=== PATIENT | female | born 1945 | race Native Hawaiian/Other Pacific Islander ===

== ENCOUNTER 2019-05-07 14:48 | Outpatient (CLI) | payer OTHER ==
[~2019-05-07 14:48] MED LIST: CETIRIZINE10 MG PO; COLC0.6T6 PO; HYDR25TA60 PO; INDOMETHACIN50 MG PO; LISI20TA11 PO; METF500T PO; PANT40TA PO
== END 2019-05-07 19:32 | disposition home or self-care (01) ==
LOC: RAD 14:48
DX: M25.531 Pain in right wrist (principal)

== ENCOUNTER 2019-10-15 13:43 | Outpatient (CLI) | payer OTHER | END 2019-10-15 19:09 | disposition home or self-care (01) | LOC: RAD 13:43 | DX: M25.561 Pain in right knee (principal); M25.562 Pain in left knee ==

== ENCOUNTER 2020-09-06 10:20 | Outpatient (CLI) | payer OTHER, MEDICARE | END 2020-09-06 19:47 | disposition home or self-care (01) | LOC: RAD 10:20 | PROVIDERS: ATTEND Orthopaedic Surgery | DX: M25.562 Pain in left knee (principal) ==

== ENCOUNTER 2020-10-11 13:23 | Outpatient (CLI) | payer OTHER, MEDICARE | END 2020-10-11 22:45 | disposition home or self-care (01) | LOC: RAD 13:23 | PROVIDERS: ATTEND Orthopaedic Surgery | DX: M25.561 Pain in right knee (principal) ==

== ENCOUNTER 2021-06-06 10:28 | Outpatient (CLI) | payer OTHER, MEDICARE ==
[~2021-06-06] VITALS: Ht 160 cm; Wt 108.0 kg
== END 2021-06-06 19:28 | disposition home or self-care (01) ==
LOC: INF 10:28
PROVIDERS: ATTEND Family Medicine
DX: U07.1 COVID-19 (principal); Z23 Encounter for immunization
CPT/HCPCS: 96365; Q0247

== ENCOUNTER 2021-10-30 16:18 | Outpatient (CLI) | payer OTHER, MEDICARE | END 2021-10-30 19:53 | disposition home or self-care (01) | LOC: RAD 16:18 | PROVIDERS: ATTEND Family Medicine | DX: M25.511 Pain in right shoulder (principal); M25.512 Pain in left shoulder ==